=== PATIENT | female | born 1965 | race Caucasian/White ===

== ENCOUNTER 2020-06-25 15:42 | Outpatient (REF) | payer BC, SELFPAY ==
--- NOTE | ~2020-06-25 | MM_ITS ---
EXAMINATION: MM SCREENING DIGITAL BREAST TOMOSYNTHESIS, BILATERAL CLINICAL INFORMATION: Screening. Asymptomatic. The lifetime risk of breast cancer based on the Tyrer-Cuzick Model is 12%. COMPARISON: Mammography: 01/24/2019, and prior exams dating back to 10/04/2013 TECHNIQUE: Digital breast tomosynthesis is performed in both the craniocaudal and mediolateral oblique views along with computer-aided detection (CAD). Synthesized 2D images are generated from the tomosynthesis. FINDINGS: There are scattered areas of fibroglandular density (ACR BI-RADS breast composition Category b). There are no significant masses, abnormal calcifications, or other abnormalities. There are scattered bilateral fibronodular densities similar to prior studies. No developing density or architectural abnormality. The axilla and skin contours are unremarkable. MM/MM tomosynthesis screening BI IMPRESSION: No significant changes from prior studies. ASSESSMENT: BI-RADS 1: Negative RECOMMENDATION: Routine annual mammography screening. This patient's information was entered into a reminder system with a target due date for their next mammogram.
== END 2020-06-25 15:43 | disposition home or self-care (01) ==
LOC: HO.MAMMO 15:42
PROVIDERS: Visit Provider Family Medicine
DX: Z12.31 Encounter for screening mammogram for malignant neoplasm of breast (principal)
CPT/HCPCS: 77063; 77067

== ENCOUNTER 2020-11-18 10:10 | Outpatient (REF) | payer BC, SELFPAY | END 2020-11-18 10:11 | disposition home or self-care (01) | LOC: HO.BBR 10:10 | PROVIDERS: PCP Family Medicine; Visit Provider Internal Medicine | DX: Z13.89 Encounter for screening for other disorder (principal) ==

== ENCOUNTER 2021-07-06 15:25 | Outpatient (REF) | payer BC, SELFPAY ==
--- NOTE | ~2021-07-06 | MM_ITS ---
EXAMINATION: MM SCREENING DIGITAL BREAST TOMOSYNTHESIS, BILATERAL CLINICAL INFORMATION: Screening. Asymptomatic. The lifetime risk of breast cancer based on the Tyrer-Cuzick Model is 10%. COMPARISON: Mammography: 06/25/2020, 01/24/2019, 12/12/2017 TECHNIQUE: Digital breast tomosynthesis is performed in both the craniocaudal and mediolateral oblique views along with computer-aided detection (CAD). Synthesized 2D images are generated from the tomosynthesis. FINDINGS: There are scattered areas of fibroglandular density (ACR BI-RADS breast composition Category b). There are no significant masses, abnormal calcifications, or other abnormalities. Background stromal markings are stable. No architectural abnormality. There is a small dermal lesion again noted posterior inferior medial left breast on CC tomography. No significant changes from prior studies. MM/MM tomosynthesis screening BI IMPRESSION: No mammographic evidence of malignancy. ASSESSMENT: BI-RADS 2: Benign RECOMMENDATION: Routine annual mammography screening. This patient's information was entered into a reminder system with a target due date for their next mammogram.
== END 2021-07-06 15:26 | disposition home or self-care (01) ==
LOC: HO.MAMMO 15:25
PROVIDERS: PCP Family Medicine; Visit Provider Family Medicine
DX: Z12.31 Encounter for screening mammogram for malignant neoplasm of breast (principal)
CPT/HCPCS: 77063; 77067

== ENCOUNTER 2021-12-03 12:01 | Outpatient (REF) | payer BC, SELFPAY | END 2021-12-03 12:02 | disposition home or self-care (01) | LOC: HO.BBR 12:01 | PROVIDERS: Visit Provider Internal Medicine | DX: Z13.89 Encounter for screening for other disorder (principal) ==

== ENCOUNTER 2022-07-07 15:40 | Outpatient (REF) | payer BC, SELFPAY ==
--- NOTE | ~2022-07-07 | MM_ITS ---
EXAMINATION: MM SCREENING DIGITAL BREAST TOMOSYNTHESIS, BILATERAL CLINICAL INFORMATION: Screening. Asymptomatic. The lifetime risk of breast cancer based on the Tyrer-Cuzick Model is 10.2%. COMPARISON: Mammography: July 06, 2021 and studies dating back to November 04, 2015 TECHNIQUE: Digital breast tomosynthesis is performed in both the craniocaudal and mediolateral oblique views along with computer-aided detection (CAD). Synthesized 2D images are generated from the tomosynthesis. FINDINGS: The breasts are almost entirely fatty (ACR BI-RADS breast composition Category a). There are no significant masses, abnormal calcifications, or other abnormalities. MM/MM tomosynthesis screening BI IMPRESSION: No significant changes from prior exam. ASSESSMENT: BI-RADS 1: Negative RECOMMENDATION: Routine annual mammography screening. This patient's information was entered into a reminder system with a target due date for their next mammogram.
== END 2022-07-07 15:41 | disposition home or self-care (01) ==
LOC: HO.MAMMO 15:40
PROVIDERS: PCP Family Medicine; Visit Provider Advanced Practice Midwife
DX: Z12.31 Encounter for screening mammogram for malignant neoplasm of breast (principal)
CPT/HCPCS: 77063; 77067

== ENCOUNTER 2022-09-14 15:22 | Outpatient (REF) | payer BC, SELFPAY | END 2022-09-14 15:23 | disposition home or self-care (01) | LOC: HO.BBR 15:22 | PROVIDERS: Visit Provider Internal Medicine | DX: Z13.89 Encounter for screening for other disorder (principal) ==

== ENCOUNTER 2023-07-26 16:28 | Outpatient (REF) | payer BC, SELFPAY | END 2023-07-26 16:29 | disposition home or self-care (01) | LOC: HO.MAMMO 16:28 | PROVIDERS: PCP Family Medicine; Visit Provider Family Medicine | DX: Z12.31 Encounter for screening mammogram for malignant neoplasm of breast (principal) | CPT/HCPCS: 77063; 77067 ==

== ENCOUNTER → 2023-07-26 16:30 | Outpatient (BNV) | payer BC, SELFPAY | PROVIDERS: PCP Family Medicine; Visit Provider Radiology Diagnostic Radiology | DX: Z12.31 Encounter for screening mammogram for malignant neoplasm of breast (principal) | CPT/HCPCS: 77063; 77067 ==

== ENCOUNTER 2023-12-01 11:04 | Outpatient (REF) | payer BC, SELFPAY | END 2023-12-01 11:05 | disposition home or self-care (01) | LOC: HO.BBR 11:04 | PROVIDERS: PCP Family Medicine; Visit Provider Internal Medicine | DX: Z13.89 Encounter for screening for other disorder (principal) ==

== ENCOUNTER 2024-07-26 15:57 | Outpatient (REF) | payer BC, SELFPAY ==
--- OUTSIDE RECORDS SUMMARY | 2024-07-26 18:00 | XMS_ITS | Clinical Summary ---
Author Organization [facility] Address [address] [place] [address] Care Team Providers Care Glove Finisher Name Role Phone Jihan Gonzalez MD Primary Care Provider [phone] Allergies Active Allergy Reactions Criticality Noted Date Comments Sulfa Antibiotics 10/28/2016 Medications Medication Sig Dispensed Refills Start Date End Date Status traZODone (DESYREL) 50 MG tablet Take 1 tablet (50 mg total) by mouth every night at bedtime. 0 Active hyoscyamine (LEVSIN/SL) 0.125 MG SL tablet Take 1 tablet (0.125 mg total) by mouth as needed for cramping. 0 Active Active Problems No known active problems Social History Tobacco Use Types Packs/Day Years Used Date Smoking Tobacco: Never Smokeless Tobacco: Never Alcohol Use Standard Drinks/Week Comments No 0 (1 standard drink = 0.6 oz pur e alcohol) Sex and Gender Information Value Date Recorded Sex Assigned at Not on file Gender Identity Not on file Sexual Orientation Not on file Job Start Date Occupation Industry Not on file Not on file Not on file Last Filed Vital Signs Vital Sign Reading Time Taken Comments Blood Pressure 128/74 01/23/2024 2:54 PM EDT Pulse 74 01/23/2024 2:54 PM EDT Temperature 36.8 ??C (98.3 ??F) 01/23/2024 2:54 PM ED T Respiratory Rate - - Oxygen Saturation 98% 01/23/2024 2:54 PM EDT Inhaled Oxygen Concentration - - Weight 91.6 kg (202 lb) 01/23/2024 2:54 PM EDT Height 167.6 cm (5' 6 ) 01/31/2023 4:05 PM EDT Body Mass Index 32.6 01/31/2023 4:05 PM EDT Plan of Treatment Health Maintenance Due Date Last Done Comments Hepatitis B Vaccines (1 of 3 - 3-dose series) 1966 Hepatitis C Screening 1966 COVID-19 Vaccine (#1) 01/30/1967 Depression Screening 1978 Preventative Health Evaluation 1984 DTap / Tdap / Td (1 - Tdap) 1985 Cervical Cancer Screening (P ap Smear) 07/31/1987 Colon Cancer Screening (Colonoscopy) 07/31/2011 Breast Cancer Screening (Mammogram) 2016 Shingrix-Zoster Vaccine (1 of 2) 2016 Influenza Vaccine (#1) 2024 Pneumococcal Vaccine Aged Out No long er eligible based on patient's age to complete this topic RSV Ped < 20 months Aged Out No longe r eligible based on patient's age to complete this topic Care Teams Glove Finisher Relationship Specialty Start Date End Date Jihan Gonzalez MD PCP - General Family Medicine 10/17/16
--- OUTSIDE RECORDS SUMMARY | 2024-07-26 18:00 | XMS_ITS | Clinical Summary ---
Author Organization [address] [place] [address] Address [address] [place] [address] Phone Care Team Providers Care Aprn Name Role Phone Jihan Gonzalez MD Primary Care Provider + Allergies Active Allergy Reactions Criticality Noted Date Comments Cephalexin Rash 05/14/2024 Sulfa (Sulfonamide Antibiotics) 10/08 Medications hyoscyamine (LEVSIN) 0.125 mg SL tablet Take 1 tablet (0.125 mg total) by mouth as needed for cramping. Active traZODone (DESYREL) 50 mg tablet Take 1 tablet (50 mg total) by mouth every night at bedtime. Active estradioL (ESTRACE) 0.01 % (0.1 mg/gram) vaginal cream APPLY PEA SIZE AMOUNT VAGINALLY TWICE WEEKLY. 4 Active hydrocortisone (ANUSOL-HC) 2.5 % rectal cream APPLY TO AFFECTED AREA RECTALLY TWICE A DAY 4 Active Encounters Date Type Department Care Team Description 05/14/2024 2:40 PM EST Office Visit Gastroenterology [facility] [address] [phone] Tonya Diaz PA Sigmoid diverticulosis (Primary Dx); Pancreas cyst [facility] [address] [phone] Tonya Diaz PA from Last 3 Months Social History Tobacco Use Types Packs/Day Years Used Date Smoking Tobacco: Never Smokeless Tobacco: Never Alcohol Use Standard Drinks/Week Comments No 0 (1 standard drink = 0.6 oz pur e alcohol) Comments Unknown Sex and Gender Information Value Date Recorded Sex Assigned at Female 03/08/2024 4:23 PM EDT Legal Sex Female 1:51 AM EST Gender Identity Female 03/08/2024 4:23 PM EDT Sexual Orientation Straight 03/08/2024 4: 23 PM EDT Obstetrics History Last Filed Vital Signs Vital Sign Reading Time Taken Comments Blood Pressure 128/70 05/14/2024 2:40 PM EST Pulse 70 05/14/2024 2:40 PM EST Temperature - - Respiratory Rate - - Oxygen Saturation - - Inhaled Oxygen Concentration - - Weight 91.6 kg (202 lb) 05/14/2024 2:40 PM EST Height 167.6 cm (5' 6 ) 05/14/2024 2:40 PM EST Body Mass Index 32.6 05/14/2024 2:40 PM EST Plan of Treatment Upcoming Encounters Date Type Department Care Team (Late st Contact Info) Description 09/18/2024 8:30 AM EDT Appointment [facility] Endoscopy [address] [place] [phone] Triston Anderson DO [address] [address] 10/25/2024 10:15 AM EDT Office Visit [facility] Hematology Oncology [address] [place] [phone] Heladio Brand MD [address] [place] [address] 05/16/2025 3:20 PM EST Office Visit Gastroenterology - [place] 175 [facility] [address] [phone] Tonya Diaz PA [address] [address] Health Maintenance Due Date Last Done Comments Breast Cancer Screening 1966 Hepatitis B Vaccines (1 of 3 - 19+ 3-dose series) 1985 Cervical Cancer Screening: P ap Smear 07/31/1987 Pneumococcal Vaccine: 50+ Years (1 of 1 - PCV) 2016 Zoster Vaccines (1 of 2) 2016 Colorectal Cancer Screening: Colonoscopy 04/16/2022 Depression Screening 04/16/2022 HIV Screening 04/16/2022 Hepatitis C Screening 04/16/2022 Social Influencers of Health Screening 04/16/2022 COVID-19 Vaccine (4 - 2023-2 5 season) 2024 04/17/2021, 08/06/2020, 07/09/2020 Influenza Vaccine (#1) 2024 02/11/2021 DTaP,Tdap,and Td Vaccines (2 - Td or Tdap) 07/19/2033 07/20/2023 HIB Vaccines Aged Out No longer eligi ble based on patient's age to complete this topic HPV Vaccines Aged Out No longer eligi ble based on patient's age to complete this topic Hepatitis A Vaccines Aged Out No long er eligible based on patient's age to complete this topic IPV Vaccines Aged Out No longer eligi ble based on patient's age to complete this topic MMR Vaccines Aged Out No longer eligi ble based on patient's age to complete this topic Meningococcal ACWY Vaccine Aged Out N o longer eligible based on patient's age to complete this topic Meningococcal B Vacine Aged Out No lo nger eligible based on patient's age to complete this topic Pneumococcal Vaccine: Pediatrics (0 to 5 Years) and At-Risk Patients (6 to 64 Years) Aged Out No longer eligible b ased on patient's age to complete this topic RSV Immunization Patients Under 20 months Aged Out No longer eligible b ased on patient's age to complete this topic Varicella Vaccines Aged Out No longer eligible based on patient's age to complete this topic Insurance [facility]RE[facility]AC[facility] BY [facility]) Care Teams Aprn Relationship Specialty Start Date End Date Jihan Gonzalez MD [address] [place] [address] PCP - General Family Medicine 10/17/16
== END 2024-07-26 15:58 | disposition home or self-care (01) ==
LOC: HO.MAMMO 15:57
PROVIDERS: PCP Family Medicine; Visit Provider Family Medicine
DX: Z12.31 Encounter for screening mammogram for malignant neoplasm of breast (principal)
CPT/HCPCS: 77063; 77067

== ENCOUNTER → 2024-07-26 16:00 | Outpatient (BNV) | payer BC, SELFPAY | PROVIDERS: PCP Family Medicine; Visit Provider Internal Medicine | DX: Z12.31 Encounter for screening mammogram for malignant neoplasm of breast (principal) | CPT/HCPCS: 77063; 77067 ==

== ENCOUNTER 2024-11-06 12:01 | Outpatient (REF) | payer BC, SELFPAY ==
--- OUTSIDE RECORDS SUMMARY | 2024-11-06 13:09 | XMS_ITS | Clinical Summary ---
Author Organization [facility] Address [address] [place] [address] Phone Care Team Providers Care Improvement Auditor Name Role Phone Jihan Gonzalez MD Primary [...] APPLY PEA SIZE AMOUNT VAGINALLY TWICE WEEKLY. 04/16/20 24 Active hydrocortisone (ANUSOL-HC) 2.5 % rectal cream APPLY TO AFFECTED AREA RECTALLY TWICE A DAY 01/20/20 24 Active polyethylene glycol (Golytely) 236-22.74-6.74 -5.86 gram solution Take 4L by mouth once for one dose. May substitue any PEG. Starting at 6PM the night before your procedure drink 1 8oz glasses at your own pace until you complete half of the gallon. Finish 2nd half of the gallon 5 hours before your procedure. 4000 mL 09/05/19 25 025 Discontinued bisacodyL (DULCOLAX) 5 mg EC tablet Take 2 tablets by mouth right before beginning bowel prep. See instructions provided by the office 2 tablet 09/05/19 025 Discontinued Encounters Date Type Department Care Team Description 10/25/2024 10:15 AM EDT Office Visit [facility] Hematology Oncology [address] [place] [phone] Heladio Brand MD Hereditary hemochromatosis (CMS/HCC V24) (Primary Dx) 09/18/2024 9:30 AM EDT Anesthesia Event [facility] Endoscopy [address] [place] [phone] Jacky Bajwa MD 09/18/2024 8:07 AM EDT - 09/18/2024 11:59 PM EDT Hospital Encounter [facility] Endoscopy [address] [place] [phone] Rashaun Anderson DO Hayes, Brett L, CRNA Korobkov, Vitaliy, DO Colon cancer screening Discharge Disposition: Home or Self Care from Last 3 Months Medical History Medical History Date Comments Hemochromatosis Diverticulosis Social History Tobacco Use Types Packs/Day Years Used Date Smoking Tobacco: Never Smokeless Tobacco: Never Alcohol Use Standard Drinks/Week Comments No 0 (1 standard drink = 0.6 oz pur e alcohol) Interpersonal Safety Answer Date Record ed Physical Abuse 09/18/2024 Verbal Abuse 09/18/2024 Comments No Sex and Gender Information Value Date Recorded Sex Assigned at Female 03/08/2024 4:23 PM EDT Legal Sex Female 1:51 AM EST Gender Identity Female 03/08/2024 4:23 PM EDT Sexual Orientation Straight 03/08/2024 4: 23 PM EDT Obstetrics History Last Filed Vital Signs Vital Sign Reading Time Taken Comments Blood Pressure 150/82 10/25/2024 10:14 AM EDT Pulse 73 10/25/2024 10:14 AM EDT Temperature 36.7 C (98 F) 10/25/2024 10:14 AM EDT Respiratory Rate 14 09/18/2024 10:06 AM EDT Oxygen Saturation 100% 10/25/2024 10:14 AM EDT Inhaled Oxygen Concentration - - Weight 93.9 kg (207 lb) 10/25/2024 10:14 AM EDT Height 167.6 cm (5' 6 ) 09/18/2024 8:42 AM EDT Body Mass Index 33.41 09/18/2024 8:42 AM EDT Plan of Treatment Upcoming Encounters Date Type Department Care Team (Late st Contact Info) Description 05/16/2025 3:20 PM EST Office Visit Gastroenterology - [place] [facility] [address] [facility] [address] [place] [phone] Tonya Diaz PA [address] [facility] [address] [place] [address] 10/29/2025 10:30 AM EDT Office Visit [facility] Hematology Oncology [address] [place] [phone] Heladio Brand MD [address] [place] [address] Health Maintenance Due Date Last Done Comments Breast Cancer Screening 1965 Hepatitis B Vaccines (1 of 3 - 19+ 3-dose series) 1985 Pneumococcal Vaccine: 50+ Years (1 of 2 - PCV) 1985 Pneumococcal Vaccine: Pediatrics (0 to 5 Years) and At-Risk Patients (6 to 64 Years) (1 of 2 - PCV) 1985 Cervical Cancer Screening: P ap Smear 07/31/1987 Zoster Vaccines (1 of 2) 2016 Depression Screening 04/16/2022 HIV Screening 04/16/2022 Hepatitis C Screening 04/16/2022 Social Influencers of Health Screening 04/16/2022 COVID-19 Vaccine (4 - 2023-2 5 season) 2024 04/17/2021, 08/06/2020, 07/09/2020 Influenza Vaccine (Season Ended) 2025 02/11/2021 DTaP,Tdap,and Td Vaccines (2 - Td or Tdap) 07/19/2033 07/20/2023 Colorectal Cancer Screening: Colonoscopy 09/18/2034 09/18/2024 HIB Vaccines Aged Out No longer eligi [...] age to complete this topic Meningococcal B Vaccine Aged Out No l onger eligible based on patient's age to complete this topic RSV Immunization Patients Under 20 months Aged Out No longer eligible b ased on patient's age to complete this topic Varicella Vaccines Aged Out No longer eligible based on patient's age to complete this topic Procedures Procedure Name Priority Date/Time Associated Diagnosis Comments ..MISCELLANEOUS REFERENCE LAB TEST 10/25/2024 CBC WITH AUTO DIFFERENTIAL Routine 10/22/2024 12:08 PM EDT Pigment cirrhosis (CMS/HCC V24) IRON AND TIBC Routine 10/22/2024 12:08 PM EDT Pigment cirrhosis (CMS/HCC V24) FERRITIN Routine 10/22/2024 12:08 PM EDT Pigment cirrhosis (CMS/HCC V24) CBC AND DIFFERENTIAL Routine 10/22/2024 12:08 PM EDT Pigment cirrhosis (CMS/HCC V24) COMPREHENSIVE METABOLIC PANEL Routine 10/22/2024 12:08 PM EDT Pigment cirrhosis (CMS/HCC V24) COLONOSCOPY Routine 09/18/2024 9:45 AM EDT Colon cancer screening TISSUE EXAM Routine 09/18/2024 9:41 AM EDT Colon cancer screening from Last 3 Months Results * Miscellaneous reference lab test (10/25/2024) us Provider Onbase MD LAB BLOOD ORDERABLES Final Re sult * (ABNORMAL) CBC auto differential (10/22/2024 12:08 PM EDT) WBC 5.2 4.8 - 10.8 K/mcL LAB HEMETOLOGY METHOD 10/22/2024 5:08 PM [facility] RBC 4.10 3.80 - 4.80 M/mcL LAB HEMETOLOGY METHOD 10/22/2024 5:08 PM [facility] Hemoglobin 13.6 11.5 - 16.0 g/dL LAB HEMETOLOGY METHOD 10/22/2024 5:08 PM [facility] Hematocrit 41.3 35.0 - 47.0 % LAB HEMETOLOGY METHOD 10/22/2024 5:08 PM [facility] MCV 100.5(H) 79.0 - 98.0 FL LAB HEMETOLOGY METHOD 10/22/2024 5:08 PM [facility] MCH 33.1(H) 27.0 - 32.0 pcg LAB HEMETOLOGY METHOD 10/22/2024 5:08 PM [facility] MCHC 32.9 32.0 - 37.0 g/dL LAB HEMETOLOGY METHOD 10/22/2024 5:08 PM [facility] RDW 13.0 11.0 - 15.0 % LAB HEMETOLOGY METHOD 10/22/2024 5:08 PM [facility] Platelets 226 130 - 400 K/mcL LAB HEMETOLOGY METHOD 10/22/2024 5:08 PM [facility] MPV 12.2(H) 7.0 - 11.0 FL LAB HEMETOLOGY METHOD 10/22/2024 5:08 PM [facility] NRBC 0.0 <1.0 % LAB HEMETOLOGY METHOD 10/22/2024 5:08 PM [facility] NRBC Absolute 0.00 <0.10 K/mcL LAB HEMETOLOGY METHOD 10/22/2024 5:08 PM [facility] Neutrophils Relative 50.9 % LAB HEMETOLOGY METHOD 10/22/2024 5:08 PM [facility] Lymphocytes Relative 39.6 % LAB HEMETOLOGY METHOD 10/22/2024 5:08 PM [facility] Monocytes Relative 7.5 % LAB HEMETOLOGY METHOD 10/22/2024 5:08 PM [facility] Eosinophils Relative 1.2 % LAB HEMETOLOGY METHOD 10/22/2024 5:08 PM [facility] Basophils Relative 0.6 % LAB HEMETOLOGY METHOD 10/22/2024 5:08 PM [facility] Immature Granulocytes Relative 0.2 % LAB HEMETOLOGY METHOD 10/22/2024 5:08 PM [facility] Neutrophils Absolute 2.65 1.50 - 7.00 K/mcL LAB HEMETOLOGY METHOD 10/22/2024 5:08 PM [facility] Lymphocytes Absolute 2.06 1.00 - 5.00 K/mcL LAB HEMETOLOGY METHOD 10/22/2024 5:08 PM [facility] Monocytes Absolute 0.39 0.20 - 1.00 K/mcL LAB HEMETOLOGY METHOD 10/22/2024 5:08 PM [facility] Eosinophils Absolute 0.06 0.00 - 0.50 K/mcL LAB HEMETOLOGY METHOD 10/22/2024 5:08 PM [facility] Basophils Absolute 0.03 0.00 - 0.20 K/mcL LAB HEMETOLOGY METHOD 10/22/2024 5:08 PM [facility] Immature Granulocytes Absolute 0.01 0.00 - 0.03 K/mcL LAB HEMETOLOGY METHOD 10/22/2024 5:08 PM [facility] Blood Venous blood specimen / Unknown Venipuncture / Unknown 10/22/2024 12:08 PM EDT 10/22/2024 4:55 PM EDT us Heladio Brand MD LAB BLOOD ORDERABLES Final R esult [facility] [address] [place] [address], [place] [phone] * (ABNORMAL) Iron and TIBC (10/22/2024 12:08 PM EDT) Iron 189(H) 40 - 150 mcg/dL LAB CHEMISTRY METHOD 10/22/2024 5:46 PM EDT [facility] TIBC 209(L) 250 - 450 mcg/dL LAB CHEMISTRY METHOD 10/22/2024 5:46 PM EDT [facility] Iron Saturation 90(H) 15 - 50 % LAB CHEMISTRY METHOD 10/22/2024 5:46 PM EDT [facility] Blood Venous blood specimen / Unknown Venipuncture / Unknown 10/22/2024 12:08 PM EDT 10/22/2024 4:53 PM EDT us Heladio Brand MD LAB BLOOD ORDERABLES Final R esult Performing Organization Address [facility]/ZIP Co de Phone Number [facility] [address] [place] [address], [place] [phone] * Ferritin (10/22/2024 12:08 PM EDT) Ferritin 98 8 - 252 ng/mL LAB CHEMISTRY METHOD 10/22/2024 5:46 PM EDT [facility] Blood Venous blood specimen / Unknown Venipuncture / Unknown 10/22/2024 12:08 PM EDT 10/22/2024 4:53 PM EDT us Heladio Brand MD LAB BLOOD ORDERABLES Final R esult [facility] [address] [place] [address], * Comprehensive metabolic panel (10/22/2024 12:08 PM EDT) Sodium 138 133 - 145 mmol/L LAB CHEMISTRY METHOD 10/22/2024 5:46 PM EDT [facility] Potassium 4.1 3.5 - 5.5 mmol/L LAB CHEMISTRY METHOD 10/22/2024 5:46 PM EDT [facility] Chloride 105 96 - 110 mmol/L LAB CHEMISTRY METHOD 10/22/2024 5:46 PM EDT [facility] CO2 28 21 - 32 mmol/L LAB CHE[facility]STRY [facility] Anion Gap 5 3 - 11 LAB CHEMISTRY METHOD [facility]24 [facility] Glucose 97 70 - 100 mg/dL LAB CHEMISTRY METHOD [facility]/22[facility]24 [facility] BUN 14 5 - 25 mg/dL LAB CHEMISTRY METHOD 10/22/2024 5:46 PM [facility] Creatinine 0.79 0.50 - 1.10 mg/dL LAB CHEMISTRY METHOD 10/22[facility]2024 [facility] eGFR 87 >=60 mL/min/1. 73m2 LAB CHEMISTRY METHOD 10/22/2024 5:46 PM EDT [facility] Comment:Calculation based on the Chronic Kidney Disease Epidemiology Collaboration (CKD-EPI) equation refit without adjustment for race. BUN/Creatinine Ratio 17.7 LAB CHEMISTRY METHOD 10/22/2024 5:46 PM [facility] Calcium 9.1 8.5 - 10.5 mg/dL LAB CHEMISTRY METHOD 10/22[facility]2024 5[facility] AST (SGOT) 20 10 - 42 unit/L LAB CHEMISTRY METHOD 10/22/2024 5:46 PM EDT [facility] ALT (SGPT) 25 10 - 60 unit/L LAB CHEMISTRY METHOD 10/22/2024 5:46 PM EDT [facility] Alkaline Phosphatase 79 42 - 121 unit/L LAB CHEMISTRY METHOD 10/22/2024 5:46 PM EDT [facility] Total Protein 6.4 6.0 - 8.0 g/dL LAB CHEMISTRY METHOD 10/22/2024 5:46 PM EDT [facility] Albumin 3.8 3.2 - 5.0 g/dL LAB CHEMISTRY METHOD 10/22/2024 5:46 PM EDT [facility] Total Bilirubin 0.6 0.0 - 1.4 mg/dL LAB CHEMISTRY METHOD 10/22/2024 5:46 PM EDT [facility] Blood Venous blood specimen / Unknown Venipuncture / Unknown 10/22/2024 12:08 PM EDT 10/22/2024 4:53 PM EDT Heladio Brand MD LAB BLOOD ORDERABLES Final R esult [facility] [address] [place] [address], * [place]OS[place] [facility] [place] [facility] ENDOSCOPY (09/18/2024 9:45 AM EDT) Anatomical Region Laterality Modality Endoscopy 09/18/2024 8:27 AM EDT Impressions 09/18/2024 9:15 AM EDT Recommendation: - - Discharge patient to home. - High fiber diet. - Continue present medications. - Await pathology results. - Repeat colonoscopy for surveillance based on pathology results. Narrative 09/18/2024 9:15 AM EDT [facility] GI Patient Name: Corina Calderon Procedure Date: 09/18/2024 8:27 AM Date of : 1965 Age: 59 Gender: Female Note Status: Finalized Attending MD: Rashaun Anderson DO, [id number] Procedure Date No Time: 09/18/2024 Procedure: Colonoscopy Indications: Screening for colorectal malignant neoplasm Providers: Rashaun Anderson DO Referring MD: Keven Gonzalez NP Medicines: Monitored Anesthesia Care Complications: No immediate complications. Estimated blood loss: Minimal. Estimated Blood Loss: Estimated blood loss was minimal. Procedure: Pre-Anesthesia Assessment: - - Prior to the procedure, a History and Physical was performed, and patient medications and allergies were reviewed. The patient is competent. The risks and benefits of the procedure and the sedation options and risks were discussed with the patient. All questions were answered and informed consent was obtained. Patient identification and proposed procedure were verified by the physician, the nurse, the anesthesiologist, the utility accounts director and the surgical scrub technician in the pre-procedure area in the endoscopy suite. Mental Status Examination: alert and oriented. Airway Examination: normal oropharyngeal airway and neck mobility. Respiratory Examination: clear to auscultation. CV Examination: normal. Prophylactic Antibiotics: The patient does not require prophylactic antibiotics. Prior Anticoagulants: The patient has taken no anticoagulant or antiplatelet agents. ASA Grade Assessment: II - A patient with severe systemic disease. After reviewing the risks and benefits, the patient was deemed in satisfactory condition to undergo the procedure. The anesthesia plan was to use monitored anesthesia care (MAC). Immediately prior to administration of medications, the patient was re-assessed for adequacy to receive sedatives. The heart rate, respiratory rate, oxygen saturations, blood pressure, adequacy of pulmonary ventilation, and response to care were monitored throughout the procedure. The physical status of the patient was re-assessed after the procedure. After I obtained informed consent, the scope was passed under direct vision. Throughout the procedure, the patient's blood pressure, pulse, and oxygen saturations were monitored continuously.The Olympus Pediatric Colonoscope was introduced through the anus and advanced to the cecum, identified by appendiceal orifice and ileocecal valve. The colonoscopy was performed without difficulty. The patient tolerated the procedure well. The quality of the bowel preparation was good. Anatomical landmarks were photographed. Findings: The perianal and digital rectal examinations were normal. A 3 mm polyp was found in the ascending colon. The polyp was sessile. The polyp was removed with a jumbo cold forceps. Resection and retrieval were complete. Estimated blood loss was minimal. An 8 mm polyp was found in the sigmoid colon. The polyp was sessile. The polyp was removed with a cold snare. Resection and retrieval were complete. Verification of patient identification for the specimen was done. Estimated blood loss was minimal. Procedure Code(s): --- Professional --- 45706, Colonoscopy, flexible; with removal of tumor(s), polyp(s), or other lesion(s) by snare technique [id number], 59, Colonoscopy, flexible; with biopsy, single or multiple Diagnosis Code(s): --- Professional --- Z12.11, Encounter for screening for malignant neoplasm of colon CPT copyright 2020 [employer]. All rights reserved. The codes documented in this report are preliminary and upon vacuum cleaner repair person review may be revised to meet current compliance requirements. RASHAUN Anderson DO 09/18/2024 9:15:12 AM This report has been signed electronically.Rashaun Anderson DO Number of Addenda: 0 Note Initiated On: 09/18/2024 8:27 AM Scope Withdrawal Time: 0 hours 31 minutes 16 seconds Scope In: 8:36:02 AM Scope Out: 9:11:35 AM Endoscopy Department at [facility] - [address] [place] [phone] Procedure Note Rashaun Anderson DO - 09/19/2024 [facility] GI Patient Name: Corina Calderon Procedure Date: 09/18/2024 8:27 AM Date of : 1965 Age: 59 Gender: Female Note Status: Finalized Attending MD: Rashaun Anderson DO, [id number] Procedure Date No Time: 09/18/2024 Procedure: Colonoscopy Indications: Screening for colorectal malignant neoplasm Providers: Rashaun Anderson DO Referring MD: Keven Gonzalez NP Medicines: Monitored Anesthesia Care Complications: No immediate complications. Estimated blood loss: Minimal. Estimated Blood Loss: Estimated blood loss was minimal. Procedure: Pre-Anesthesia Assessment: - - Prior to the procedure, a History and Physicalwas performed, and patient medications and allergieswere reviewed. The patient is competent. The risks and benefits of the procedure and the sedation optionsand risks were discussed with the patient. Allquestions were answered and informed consent was obtained. Patient identification and proposed procedure were verified by the physician, the nurse, the anesthesiologist, the utility accounts director and thetechnician in the pre-procedure area in the endoscopy suite. Mental Status Examination: alert and oriented.Airway Examination: normal oropharyngeal airway and neck mobility. Respiratory Examination: clear to auscultation. CV Examination: normal. Prophylactic Antibiotics: The patient does not requireprophylactic antibiotics. Prior Anticoagulants: The patient has taken no anticoagulant or antiplatelet agents. ASA Grade Assessment: II - A patient with severesystemic disease. After reviewing the risks and benefits,the patient was deemed in satisfactory condition to undergo the procedure. The anesthesia plan was touse monitored anesthesia care (MAC). Immediately priorto administration of medications, the patient was re-assessed for adequacy to receive sedatives. The heart rate, respiratory rate, oxygen saturations, blood pressure, adequacy of pulmonary ventilation,and response to care were monitored throughout the procedure. The physical status of the patient was re-assessed after the procedure. After I obtained informed consent, the scope was passed under direct vision. Throughout theprocedure, the patient's blood pressure, pulse, and oxygen saturations were monitored continuously.The Olympus Pediatric Colonoscope was introduced through theanus and advanced to the cecum, identified byappendiceal orifice and ileocecal valve. The colonoscopy was performed without difficulty. The patient tolerated the procedure well. The quality of the bowel preparation was good. Anatomical landmarks were photographed. Findings: The perianal and digital rectal examinations were normal. A 3 mm polyp was found in the ascending colon. The polyp was sessile. The polyp was removed with ajumbo cold forceps. Resection and retrieval werecomplete. Estimated blood loss was minimal. An 8 mm polyp was found in the sigmoid colon. The polyp was sessile. The polyp was removed with acold snare. Resection and retrieval were complete. Verification of patient identification for the specimen was done. Estimated blood loss wasminimal. Procedure Code(s): --- Professional --- 34747, Colonoscopy, flexible; with removal of tumor(s), polyp(s), or other lesion(s) by snare technique 45609, 59, Colonoscopy, flexible; with biopsy,single or multiple Diagnosis Code(s): --- Professional --- Z12.11, Encounter for screening for malignantneoplasm of colon CPT copyright 2020 [employer]. All rights reserved. The codes documented in this report are preliminary and upon vacuum cleaner repair person reviewmay be revised to meet current compliance requirements. RASHAUN Anderson DO 09/18/2024 9:15:12 AM This report has been signed electronically.Rashaun Anderson DO Number of Addenda: 0 Note Initiated On: 09/18/2024 8:27 AM Scope Withdrawal Time: 0 hours 31 minutes 16 seconds Scope In: 8:36:02 AM Scope Out: 9:11:35 AM Endoscopy Department at [facility] - [address] [place] [phone] IMPRESSION: Recommendation: - - Discharge patient to home. - High fiber diet. - Continue present medications. - Await pathology results. - Repeat colonoscopy for surveillance based on pathology results. Rashaun Anderson DO GI~PROCEDURE ORDERABLES Edited R esult - Final * Tissue exam (09/18/2024 9:41 AM EDT) Final Diagnosis A. Ascending Colon, polyp: Benign colonic mucosa with lymphoid aggregate. No dysplasia or neoplasia identified. B. Sigmoid Colon, polyp: Hyperplastic polyp. 09/19/2024 11:56 AM EDT [facility] Gross Description A. Large Intestine, Right/Ascending Colon, polyp x1 via jumbo forcep: Labeled ascend colon polyp x 1 . Received in formalin, is an approximately 0.4 cm in greatest diameter soft to rubbery, macedo tissue fragment, inked green at the margin, which is wrapped in paper and submitted in toto in one cassette, one piece, multiple levels. B. Large Intestine, Sigmoid Colon, polyp x1 via cold snare: Labeled sig colon polyp x1 . Received in formalin, is an approximately 0.4 cm in greatest diameter soft to rubbery, macedo-pink tissue fragment, inked green at the margin, admixed with fecal/food debris, which is wrapped in paper and submitted in toto in one cassette, one piece, multiple levels. hs/DG 09/19/2024 11:56 AM EDT [facility] Disclaimer Unless otherwise specified, all tissue is 10% NB formalin fixed and paraffin embedded. 09/19/2024 11:56 AM EDT [facility] Tissue Ascending colon structure / Unknown 09/18/2024 9:41 AM EDT 09/18/2024 11:01 AM EDT Tissue specimen (specimen) Sigmoid colon structure / Unknown 09/18/2024 9:43 AM EDT 09/18/2024 11:01 AM EDT us Rashaun Anderson DO LAB PATHOLOGY ORDERABLES Final R esult [facility] ([facility]) [facility] [address] [place] [address], [place] [phone] from Last 3 Months Insurance [facility] ([facility]) Care Teams Improvement Auditor Relationship Specialty Start Date End Date Jihan Gonzalez MD [address] [place] [address] PCP - General Family Medicine 10/17/16
--- OUTSIDE RECORDS SUMMARY | 2024-11-06 13:09 | XMS_ITS | Clinical Summary ---
Author Organization [facility] Address [address] [place] [address] Care Team Providers Care Lasting Machine Operator Hand Method Name Role Phone Jihan Gonzalez MD Primary Care Provider [phone] Allergies Active Allergy Reactions Criticality Noted Date [...] 74 01/23/2024 2:54 PM EDT Temperature 36.8 C (98.3 F) 01/23/2024 2:54 PM EDT Respiratory Rate - - Oxygen Saturation 98% [...] Vaccine (1 of 2) 2016 Influenza Vaccine (Season Ended) 2025 Pneumococcal Vaccine Aged Out No long er eligible based on patient's age to complete this topic RSV Ped < 20 months Aged Out No longe r eligible based on patient's age to complete this topic Care Teams Lasting Machine Operator Hand Method Relationship Specialty Start Date End Date Jihan Gonzalez MD PCP - General Family Medicine 10/17/16
== END 2024-11-06 12:02 | disposition home or self-care (01) ==
LOC: HO.BBR 12:01
PROVIDERS: Visit Provider Internal Medicine
DX: Z13.89 Encounter for screening for other disorder (principal)

== ENCOUNTER 2025-03-11 15:30 | Outpatient (REF) | payer BC, SELFPAY ==
--- OUTSIDE RECORDS SUMMARY | 2025-03-11 16:42 | XMS_ITS | Clinical Summary ---
Author Organization [facility] Address [address] [place] [address] Care Team Providers Care Workplace Rehabilitation Officer Name Role Phone Jihan Gonzalez MD Primary Care Provider [phone] Allergies Active Allergy Reactions Criticality Noted Date [...] (1 of 2) 2016 Influenza Vaccine (#1) 2025 Pneumococcal Vaccine Aged Out No long er eligible based on patient's age to complete this topic RSV Ped < 20 months Aged Out No longe r eligible based on patient's age to complete this topic Care Teams Workplace Rehabilitation Officer Relationship Specialty Start Date End Date Jihan Gonzalez MD PCP - General Family Medicine 10/17/16
--- OUTSIDE RECORDS SUMMARY | 2025-03-11 16:42 | XMS_ITS | Clinical Summary ---
Author Organization [address] [facility] Address [address] [place] [address] Phone Care Team Providers Care Mobile Home Installer Name Role Phone Jihan Gonzalez MD Primary [...] APPLY PEA SIZE AMOUNT VAGINALLY TWICE WEEKLY. Active hydrocortisone (ANUSOL-HC) 2.5 % rectal cream APPLY TO AFFECTED AREA RECTALLY TWICE A DAY 4 Active Medical History Medical History Date Comments Hemochromatosis Diverticulosis Social History Tobacco Use Types Packs/Day Years Used Date Smoking Tobacco: Never Smokeless Tobacco: Never Alcohol Use Standard Drinks/Week Comments No 0 (1 standard drink = 0.6 oz pur e alcohol) Interpersonal Safety Answer Date Record ed Physical Abuse Unrecognized value 09/18/2024 Verbal Abuse Unrecognized value 09/18/2024 Comments No Sex and Gender Information [...] 3:20 PM EST Office Visit Gastroenterology - [address] [phone] Tonya Diaz PA [address] [address] 10/29/2025 10:30 AM EDT Office Visit [facility] Hematology Oncology [address] [place] [id number] Heladio Brand MD [address] [place] [address] Health Maintenance Due Date Last Done Comments Breast Cancer Screening 1965 Hepatitis B Vaccines (1 of 3 - 19+ 3-dose series) 1985 Pneumococcal Vaccine: 50+ Years (1 of 2 - PCV) 1985 Cervical Cancer Screening: P ap Smear 07/31/1987 Zoster Vaccines (1 of 2) 2016 HIV Screening 04/16/2022 Hepatitis C Screening 04/16/2022 Social Influencers of Health Screening 04/16/2022 Depression Screening 05/09/2024 COVID-19 Vaccine (4 - 2024-2 6 season) 2025 04/17/2021, 08/06/2020, 07/09/2020 Influenza Vaccine (#1) 2025 02/11/2021 DTaP,Tdap,and Td Vaccines (2 - Td or Tdap) 07/19/2033 07/20/2023 Colorectal Cancer Screening: Colonoscopy 09/18/2034 09/18/2024 RSV Immunization Adult Patients (1 - 1-dose 75+ series) 2041 HIB Vaccines Aged Out No longer eligi [...] Procedure Name Priority Date/Time Associated Diagnosis Comments COLONOSCOPY Routine 09/18/2024 9:45 AM EDT Colon cancer screening from Last 3 Months or Most Recently Relevant to Health Maintenance Results * COLONOSCOPY Anesthesia - MAC; [facility] ENDOSCOPY (09/18/2024 9:45 AM EDT) Anatomical Region Laterality Modality Endoscopy 09/18/2024 8:27 AM EDT Impressions 09/18/2024 9:15 AM EDT Recommendation: - - Discharge patient to home. - High fiber diet. - Continue present medications. - Await pathology results. - Repeat colonoscopy for surveillance based on pathology results. Narrative 09/18/2024 9:15 AM EDT [facility] GI Patient Name: Faiza Calderon Procedure Date: 09/18/2024 8:27 AM Date of : 1965 Age: 59 Gender: Female Note Status: Finalized Attending MD: Rashaun Anderson DO, [id number] Procedure Date No Time: 09/18/2024 Procedure: Colonoscopy [...] the physician, the nurse, the anesthesiologist, the senior benefits specialist and the body technician/painter in the pre-procedure area in the endoscopy [...] was minimal. Procedure Code(s): --- Professional --- 69693, Colonoscopy, flexible; with removal of tumor(s), polyp(s), or other lesion(s) by snare technique 69920, 59, Colonoscopy, flexible; with biopsy, single or multiple Diagnosis Code(s): --- Professional --- Z12.11, Encounter for screening for malignant neoplasm of colon CPT copyright 2020 [employer]. All rights reserved. The codes documented in this report are preliminary and upon wildlife science professor review may be revised to meet current compliance requirements. RASHAUN Anderson DO 09/18/2024 9:15:12 AM This report has been signed electronically.Rashaun Anderson DO Number of Addenda: 0 Note Initiated On: 09/18/2024 8:27 AM Scope Withdrawal Time: 0 hours 31 minutes 16 seconds Scope In: 8:36:02 AM Scope Out: 9:11:35 AM Endoscopy Department at [facility] - [address] [place] [id number] Procedure Note Rashaun Anderson DO - 09/19/2024 [facility] GI Patient Name: Faiza Calderon Procedure Date: 09/18/2024 8:27 AM Date of : 1965 Age: 59 Gender: Female Note Status: Finalized Attending MD: Rashaun Anderson DO, [id number] Procedure Date No Time: 09/18/2024 Procedure: Colonoscopy [...] the physician, the nurse, the anesthesiologist, the senior benefits specialist and thetechnician in the pre-procedure area in [...] loss wasminimal. Procedure Code(s): --- Professional --- 51386, Colonoscopy, flexible; with removal of tumor(s), polyp(s), or other lesion(s) by snare technique 81815, 59, Colonoscopy, flexible; with biopsy,single or multiple Diagnosis Code(s): --- Professional --- Z12.11, Encounter for screening for malignantneoplasm of colon CPT copyright 2021 [employer]. All rights reserved. The codes documented in this report are preliminary and upon wildlife science professor reviewmay be revised to meet current compliance requirements. RASHAUN Anderson DO 09/18/2024 9:15:12 AM This report has been signed electronically.Rashaun Anderson DO Number of Addenda: 0 Note Initiated On: 09/18/2024 8:27 AM Scope Withdrawal Time: 0 hours 31 minutes 16 seconds Scope In: 8:36:02 AM Scope Out: 9:11:35 AM Endoscopy Department at [facility] - [address] [place] [id number] IMPRESSION: Recommendation: - - Discharge patient to home. - High fiber diet. - Continue present medications. - Await pathology results. - Repeat colonoscopy for surveillance based on pathology results. Rashaun Anderson DO GI~PROCEDURE ORDERABLES Edited R esult - Final from Last 3 Months or Most Recently Relevant to Health Maintenance Insurance [facility] Care Teams Mobile Home Installer Relationship Specialty Start Date End Date Jihan Gonzalez MD [address] [place] [id number] PCP - General Family Medicine 10/17/16
--- OUTSIDE RECORDS SUMMARY | 2025-03-11 16:42 | XMS_ITS ---
Author Name [facility] Organization Unknown Care Team Organization Name Specialty Phone Email Start Date End Da lisa [facility] BONNIE SHARONA Primary Care 03/16/20222023
== END 2025-03-11 15:31 | disposition home or self-care (01) ==
LOC: HO.BBR 15:30
PROVIDERS: Visit Provider Internal Medicine
DX: Z13.89 Encounter for screening for other disorder (principal)